=== PATIENT | male | born 1960 | race Caucasian/White ===

== ENCOUNTER 2016-07-18 12:22 | Day surgery (SDC) | payer MEDICAID ==
[2016-07-18] MEDS ORDERED: fentaNYL 100 MCG/2 ML INJ ONE (13:36)
[2016-07-18] MEDS ORDERED: MIDAZOLAM 2 MG/2 ML VIAL ONE ×2 (13:36)
[2016-07-18] MEDS ORDERED: TRIAMCINOLONE ACETONIDE 200 MG/5 ML MDV IM ONE (15:11)
[2016-07-18] MEDS ORDERED: LIDOCAINE 1% 30 ML SDV ONE (15:11)
== END 2016-07-18 15:45 | disposition home or self-care (01) ==
LOC: FIMAGING 12:22
PROC: 3E0S33Z Introduction of Anti-inflammatory into Epidural Space, Percutaneous Approach (ICD-10-PCS; principal; 2016-07-18 15:15)
PROC: 3E0S3BZ Introduction of Anesthetic Agent into Epidural Space, Percutaneous Approach (ICD-10-PCS; principal; 2016-07-18 15:15)
DX: M51.36 Other intervertebral disc degeneration, lumbar region (principal); M54.12 Radiculopathy, cervical region; M54.16 Radiculopathy, lumbar region
CPT/HCPCS: 0216T; 99152; J2250; J3010; J3301

== ENCOUNTER 2017-05-04 14:17 | Observation (INO) | payer MEDICAID ==
--- NOTE | 2017-05-04 14:29 | CPEKG ---
Heart Rate: 72 RR Interval: 833 P-R Interval: 176 QRSD Interval: 92 QT Interval: 388 QTC Interval: 425 P [place]: 77 QRS [place]: 75 T Wave [place]: -28 EKG Severity - ABNORMAL ECG - EKG Impression: SINUS RHYTHM EKG Impression: NONSPECIFIC T ABNORMALITIES, INFERIOR LEADS Electronically Signed By: Chacorta Vera 04-May-2017 15:12:50
[2017-05-04] MEDS ORDERED: NS 500 ML IV ONE (14:31)
[2017-05-04] MEDS ORDERED: ASPIRIN 81 MG CHEWABLE TAB PO ONE (14:31)
[2017-05-04 14:41] LABS: PLATELET COUNT 197 10^3/uL (150-400)
--- NOTE | 2017-05-04 14:51 | EDPHY ---
H & P Smoking Status: Never smoked Time Seen by Provider: 05/04/17 14:29 HPI/ROS: HPI Chest discomfort, lightheaded. 56-year-old male by private vehicle. This patient has a history of coronary artery disease with MN and stents placed x2 right coronary artery December 22 in [facility]. He presents the emergency department today with complaint of chest pressure and shortness of breath with she is worse with exertion intermittent since Monday but worse today. ROS: Constitutional: No fever, no chills. No weakness. Eyes: No discharge. No changes in vision. ENT: No sore throat. No nasal congestion or rhinorrhea. Respiratory: No cough. As above. Cardiac: As above, no palpitations. Gastrointestinal: No abdominal pain, no vomiting, no diarrhea. Genitourinary: No hematuria. No dysuria or increased frequency with urination. Musculoskeletal: No back pain. No neck pain. No myalgias or arthralgias. Skin: No rashes. Neurological: No headache. No focal weakness or altered sensation. Past medical history: As above, back surgery, gastritis. Social history: Nonsmoker. Here by himself. No alcohol. Physical Exam: General Appearance: Alert, no distress. This patient is responding to questions appropriately and in full sentences. This patient appears well- hydrated and well-nourished. Eyes: Pupils equal and round no pallor or injection. No lid edema, erythema or injection. Respiratory: There are no retractions, lungs are clear to auscultation with good air movement bilaterally. Cardiovascular: Regular rate and rhythm. No murmur. Gastrointestinal: Abdomen is soft and nontender, no masses, bowel sounds normal. No focal tenderness at McBurney's point. No Koehler sign. Neurological: Motor sensory function is grossly intact. Cranial nerves are normal. Gait is normal. Skin: Warm and dry, no rashes. Musculoskeletal: Neck is supple and nontender. Extremities are symmetrical. All joints range without pain or impingement. Psychiatric: No agitation. No depression. Database: EKG: EKG time is 2:27 p.m.; EKG shows a narrow complex normal sinus rhythm with a ventricular rate of 72. The IA, QRS, QT intervals are within normal limits. There are no ST-T wave changes indicative of ischemic or injury pattern. No evidence of right heart strain. Interpreted by me. Imaging: Chest x-ray AP portable; the cardiac mediastinal silhouette is unremarkable. No evidence of infiltrate or pneumothorax. No acute cardiopulmonary disease process noted. Interpreted by me. Procedures: Emergency department course: IV placed. He was placed on a monitor. Vital signs reviewed and are normal. He was given 324 mg of chewed aspirin. EKG obtained and reviewed by myself. 3:00 p.m.. We are still awaiting blood work results on this patient. Plan disposition is admission. Care turned over to Dr. Tk Guzmán at this time. Differential Diagnosis: The differential diagnosis on this patient includes but is not limited to acute coronary syndrome, pulmonary embolism, pneumonia. This represents a partial list of diagnoses considered. These considerations are based on history, physical exam, past history, reassessment and diagnostic testing. (Chacorta Vera) Constitutional: Initial Vital Signs Temperature (C) 36.7 C 05/04/17 14:20 Heart Rate 74 05/04/17 14:20 Respiratory Rate 18 05/04/17 14:20 Blood Pressure 111/79 05/04/17 14:20 O2 Sat (%) 97 05/04/17 14:20 O2 Delivery Mode Room Air Allergies/Adverse Reactions: gluten Allergy (Verified 05/04/17 14:19) GI lactose Allergy (Verified 05/04/17 14:19) GI ALMONDS Allergy (Uncoded 03/21/16 16:10) ORAL MOUTH/THROAT WINE Allergy (Uncoded 03/21/16 16:10) ORAL MOUTH THROAT BURNING Home Medications: Medication Instructions Recorded Aspirin EC [Aspirin EC 81 mg (*)] 81 mg PO DAILY 05/04/17 MIRTAZAPINE [Remeron 7.5 mg] 7.5 mg PO HS 05/04/17 Metoprolol Succinate Xr [Toprol Xl 25 mg PO DAILY 05/04/17 25 mg (*)] Ticagrelor [Brilinta] 60 mg PO 05/04/17 Medical Decision Making - Diagnostics Imaging Results: Imaging Impressions Chest X-Ray 05/04/17 14:31 Impression: Stable negative chest Chest/Thorax CTA 05/04/17 16:30 Impression: 1. Motion limited study, with no visible pulmonary embolus. 2. Prominent right hilar lymph node, possibly reactive. Short-term follow-up CT is recommended in 1-3 months. 3. Peribronchial thickening suggesting bronchitis/airways disease. 4. Additional findings, as above. Findings discussed with Tk Guzmán M.D., on May 04, [address] for PE is negative for PE One-view chest reviewed by me and appears normal (Tk Guzmán) ED Course/Re-evaluation: I have also seen and evaluated the patient. I obtained history of chest pain I reviewed his EKG. Labs showed an elevated D-dimer the. I recommended CT angiogram to the patient. He expresses agreement. I consulted and discussed the case with Dr. deep Maldonado, hospitalist who will see the patient in the emergency department I consulted and discussed case with Dr. Pedro, cardiology who sees the patient in the department also. (Tk Guzmán) Differential Diagnosis: Patient has known coronary artery disease and MN with stents about 5 months ago. I also considered pulmonary embolus and pneumonia. (Tk Guzmán) - Data Points Laboratory Results: Laboratory Results 05/04/17 14:35 05/04/17 14:35 05/04/17 05/04/17 05/04/17 14:35 14:35 14:35 WBC RBC Hgb Hct MCV MCH MCHC RDW Plt Count MPV Neut % (Auto) Lymph % (Auto) [place] % (Auto) Eos % (Auto) Baso % (Auto) Nucleat RBC Rel Count Absolute Neuts (auto) Absolute Lymphs (auto) Absolute Monos (auto) Absolute Eos (auto) Absolute Basos (auto) Absolute Nucleated RBC Immature Gran % Immature Gran # PT INR APTT D-Dimer Cancelled Sodium 137 mEq/L mEq/L (135-145) Potassium 4.1 mEq/L mEq/L (3.5-5.2) Chloride 102 mEq/L mEq/L (97-110) Carbon Dioxide 23 mEq/l mEq/l (22-31) Anion Gap 12 mEq/L mEq/L (8-16) BUN 17 mg/dL mg/dL (7-23) Creatinine 1.1 mg/dL mg/dL (0.7-1.3) Estimated GFR > 60 Glucose 114 mg/dL H mg/dL (70-100) Calcium 9.8 mg/dL mg/dL (8.5-10.4) Creatine Kinase 336 IU/L H IU/L (0-224) CK-MB (CK-2) Fraction 6.74 ng/mL H ng/mL (0.00-3.19) CK-MB (CK-2) % 2.0 % % (0.0-4.0) Creatine Kinase Interp NEGATIVE (NEGATIVE) Troponin I 0.015 ng/mL ng/mL (0.000-0.034) NT-Pro-B Natriuret Pep 114 pg/mL pg/mL (0-125) 05/04/17 05/04/17 14:35 14:35 WBC 8.53 10^3/uL 10^3/uL (3.80-9.50) RBC 4.73 10^6/uL 10^6/uL (4.40-6.38) Hgb 15.4 g/dL g/dL (13.7-17.5) Hct 41.1 % % (40.0-51.0) MCV 86.9 fL fL (81.5-99.8) MCH 32.6 pg pg (27.9-34.1) MCHC 37.5 g/dL H g/dL (32.4-36.7) RDW 12.7 % % (11.5-15.2) Plt Count 197 10^3/uL 10^3/uL (150-400) MPV 10.0 fL fL (8.7-11.7) Neut % (Auto) 72.7 % % (39.3-74.2) Lymph % (Auto) 18.2 % % (15.0-45.0) [place] % (Auto) 7.4 % % (4.5-13.0) Eos % (Auto) 0.7 % % (0.6-7.6) Baso % (Auto) 0.6 % % (0.3-1.7) Nucleat RBC Rel Count 0.0 % % (0.0-0.2) Absolute Neuts (auto) 6.21 10^3/uL 10^3/uL (1.70-6.50) Absolute Lymphs (auto) 1.55 10^3/uL 10^3/uL (1.00-3.00) Absolute Monos (auto) 0.63 10^3/uL 10^3/uL (0.30-0.80) Absolute Eos (auto) 0.06 10^3/uL 10^3/uL (0.03-0.40) Absolute Basos (auto) 0.05 10^3/uL 10^3/uL (0.02-0.10) Absolute Nucleated RBC 0.00 10^3/uL 10^3/uL (0-0.01) Immature Gran % 0.4 % % (0.0-1.1) Immature Gran # 0.03 10^3/uL 10^3/uL (0.00-0.10) PT 13.4 SEC SEC (12.0-15.0) INR 1.00 (0.83-1.16) APTT 25.1 SEC SEC (23.0-38.0) D-Dimer 0.55 ug/mLFEU H ug/mLFEU (0.00-0.50) Sodium Potassium Chloride Carbon Dioxide Anion Gap BUN Creatinine Estimated GFR Glucose Calcium Creatine Kinase CK-MB (CK-2) Fraction CK-MB (CK-2) % Creatine Kinase Interp Troponin I NT-Pro-B Natriuret Pep Medications Given: Discontinued Medications Aspirin (Aspirin) 324 mg PO EDNOW ONE Stop: 05/04/17 14:32 Last Admin: 05/04/17 14:59 Dose: 324 mg Sodium Chloride (Ns) 500 mls @ 1,000 mls/hr IV EDNOW ONE PRN Reason: Protocol Stop: 05/04/17 15:00 Last Admin: 05/04/17 15:01 Dose: 500 mls Sodium Chloride (Ns) 1,000 mls @ 0 mls/hr IV ONCE ONE; Wide Open PRN Reason: Protocol Stop: 05/04/17 16:31 Last Admin: 05/04/17 17:34 Dose: 1,000 mls Departure - Departure Disposition: [facility] Inpatient Acute Clinical Impression: Chest pain, History of coronary artery disease Condition: Good Referrals: Luana Roberto, PAC [Primary Care Provider] - As per Instructions
[2017-05-04 14:52] LABS: PROTIME(PATIENT) 13.4 SEC (12.0-15.0)
[2017-05-04 14:54] LABS: CREATINE KINASE 336 IU/L (0-224)
[2017-05-04] MEDS ORDERED: ASPIRIN 81 MG CHEWABLE TAB ONE (15:00)
[2017-05-04] MEDS ORDERED: ONDANSETRON 4 MG/2 ML VIAL IVP PRN (16:21)
[2017-05-04] MEDS ORDERED: ONDANSETRON DISINTEGRATING 4 MG TAB PO PRN (16:21)
[2017-05-04] MEDS ORDERED: ACETAMINOPHEN 325 MG TAB PO PRN (16:21)
[2017-05-04] MEDS ORDERED: NS 1,000 ML IV ONE (16:30)
[2017-05-04] MEDS ORDERED: IOPAMIDOL (ISOVUE 370) 100 ML BTL IV ONE (16:44)
--- NOTE | 2017-05-04 17:02 | GHP ---
[f rep st] HISTORY AND PHYSICAL DATE OF ADMISSION: 05/04/2017 CHIEF COMPLAINT: Chest pain. HISTORY OF PRESENT ILLNESS: A 56-year-old male with a history of coronary artery disease. [place] when he developed substernal chest pressure and dyspne a on exertion. He was taken to a hospital in [place], diagnosed with coronary artery disease and had 2 stents placed to his RCA. Patient returned to the [facility], underwent cardiac rehabilitation. He reports, since the stenting, he has not been his normal self but has not had chest discomfort or true exertional symptoms similar to his previous [facility]. On Monday of this week, approximately 48 hours ago, the patient developed new substernal chest pressure and marked dyspnea with minimal exertion wh ich is atypical for his baseline. He then developed some sensation of nausea, diaphoresis and, there fore, presented to the emergency department. In the ED, patient denies any active chest pain. Denie s shortness of breath. Diaphoresis is resolved. Patient denies any changes in his bowel habits. De nies subjective fevers or chills. Denies palpitations. Reports that he has a sensation of lower ext remity edema but objectively has not noticed any true swelling. Reports an overall diminishment in h is sense of wellness since his stenting. Patient reports that he has recently been taken off his Cre stor statin in hopes that some muscle aches and pains he had been having resolved. He believes that has improved. PAST MEDICAL HISTORY: Coronary artery disease status post stenting to the RCA x2, December of 2016. SOCIAL HISTORY: Negative for tobacco. Occasional social alcohol. No illicit drugs or marijuana. FAMILY HISTORY: Negative for coronary disease. His father has a history of arrhythmias. ADVANCED DIRECTIVES: Patient is full COR, full tube. REVIEW OF SYSTEMS: A 10-point review of systems is negative with the exception of that reported in t he HPI. PHYSICAL EXAMINATION: VITAL SIGNS: Blood pressure 107/65, heart rate 60, respiratory rate 20, 96% o n room air, 36.7. GENERAL: This is a healthy-appearing middle-aged male in no acute distress. HEENT : Notable for moist mucous membranes. Eye exam is negative for any icterus. CARDIAC: Patient is r egular rate and rhythm. PULMONARY: Clear to auscultation bilaterally. GASTROINTESTINAL: Positive bowel sounds. Abdomen soft and nontender in all 4 quadrants. MUSCULOSKELETAL: Negative for any low er extremity edema. SKIN: Negative for any rashes. NEUROLOGIC: Patient is alert and oriented x3. PSYCHIATRIC: He is pleasant and cooperative on interview and examination. White count 8.5, hematocrit 41.4, platelets of 197. Creatinine 1.1. Troponin 0.015. EKG, which I p ersonally reviewed and interpreted, shows sinus rhythm, normal axis, nonspecific ST flattening in the inferior leads. Chest x-ray, which I personally reviewed and interpreted, shows no acute infiltrate s or edema. ASSESSMENT AND PLAN: This is a 56-year-old male, with a history of coronary artery disease, presenti with chest pain. 1. Acute chest pain. With patient's recent history of RCA stenting and the quality of his symptoms related to his previous event, patient will be admitted for serial troponins and EKGs to rule out. S uspect the patient will likely undergo more invasive imaging with Cardiology tomorrow. In preparatio n for this, will make the patient n.p.o. I have asked that [facility] consult as he is a [facility] patient and has had recent imaging in their clinic which will be useful to review. 2. Coronary artery disease. Will continue the patient's beta nadeem, aspirin, Brilinta, and PAULIE in hibitor once his medications are fully reconciled. 3. Prophylaxis. Patient is ambulating. 4. Diet. Cardiac and n.p.o. after midnight. 5. Disposition. I expect in less than 2 midnights, if the patient rules out with normal troponins, EKGs, and stress testing. I discussed the case with Dr. Emil Pedro. He will consult for [facility] earjohanna and help with recommendations related to imaging in the morning. /[id number]/MODL
[2017-05-04] MEDS ORDERED: ZOLPIDEM TARTRATE 5 MG TAB PO PRN (22:12)
[2017-05-04] MEDS ORDERED: NITROGLYCERIN 0.4 MG BTL SL PRN ×2 (22:15→22:26)
[2017-05-04] MEDS ORDERED: NITROGLYCERIN 0.4 MG BTL SL ONE (22:23)
[2017-05-04] MEDS ORDERED: MIRTAZAPINE 15 MG TAB PO SCH (23:45)
[2017-05-04] MEDS ORDERED: METOPROLOL TARTRATE 25 MG TAB PO SCH (23:45)
[2017-05-05] MEDS: TICAGRELOR 90 MG TAB PO SCH ×2 (00:05→09:39)
[2017-05-05] MEDS: PREGABALIN 75 MG CAP PO SCH ×2 (00:05→09:39)
[2017-05-05] MEDS ORDERED: Herbals/Supplements -Info Only PO SCH (09:00)
[2017-05-05] MEDS ORDERED: CHOLECALCIFEROL VIT D3 2,000 UNITS TAB/CAP PO SCH (09:00)
[2017-05-05] MEDS ORDERED: ASPIRIN EC 81 MG TAB PO SCH (09:00)
[2017-05-05] MEDS ORDERED: LISINOPRIL 2.5 MG TAB PO SCH (09:00)
--- NOTE | 2017-05-05 09:45 | ASMTCASEMG ---
Living Arrangements What is your living Answers: Alone arrangement? Who do you live with? Type Of Residence What kind of residence do Answers: Apartment you live in? Discharge Plan Comments Coordination Status Comments Notes: Pt is a 56 y/o man admitted for chest pain. Pt will most likely d/c independent when medically stable. No therapies ordered at this time. CM available for changes. Plan: Independent Date Signed: 05/05/2017 09:45 AM Electronically Signed By:UBALDO Dowell
[2017-05-05] MEDS ORDERED: FAMOTIDINE 20 MG TAB PO ONE (10:04)
[2017-05-05] MEDS ORDERED: NS 1,000 ML IV ONE (10:04)
[2017-05-05] MEDS ORDERED: diphenhydrAMINE 25 MG CAP PO ONE (10:04)
[2017-05-05] MEDS ORDERED: DIAZEPAM 5 MG TAB PO ONE (10:04)
[2017-05-05] MEDS ORDERED: ASPIRIN EC 325 MG TAB PO ONE (10:04)
[2017-05-05] MEDS ORDERED: IOPAMIDOL (ISOVUE-370) 150 ML BTL IV ONE (10:06)
[2017-05-05] MEDS ORDERED: LIDOCAINE 1% 300 MG/30 ML SDV ONE ×2 (10:06→11:26)
[2017-05-05] MEDS ORDERED: MIDAZOLAM 2 MG/2 ML VIAL ONE (10:10)
[2017-05-05] MEDS ORDERED: fentaNYL 100 MCG/2 ML INJ ONE (10:10)
--- NOTE | 2017-05-05 11:39 | PDHPUP ---
History & Physical Update H&P update statement: This history and physical update is based on an assessment of the patient which was completed after admission or registration (within 24 hours), but prior to the surgery/procedure. H&P update: H&P reviewed & patient examined, no change in patient's condition since H&P completed
[2017-05-05] MEDS ORDERED: FAMOTIDINE 20 MG/NACL/50 ML BAG IV ONE (11:40)
--- NOTE | 2017-05-05 11:40 | PDPROPOC ---
Sedation Plan of Care Sedation Plan of Care: mental status noted, patient educated of risks, benefits , alternatives, patient can tolerate sedation ASA Classification: ASA 2 Planned drugs: fentanyl, midazolam Mallampati Score: Class 2 Mallampati Reference Image: Patient passed 3-3-2 rule?: Yes
--- NOTE | 2017-05-05 11:54 | HOSPPROG ---
Hospitalist Progress Note Assessment/Plan: #CP #Hx of CAD #Hx of RCA stenting Plan: -trops negative x 3 -Await decision regarding possible cath -cont BB, Aspirin, Brilinta, PAULIE-I -Cards to see Subjective: afebrile. No further chest pain. Unclear if he is agreeable to a cath. Cards to see. Objective: Vital Signs Temp Pulse Resp BP Pulse Ox 36.7 C 66 14 115/80 97 05/05/17 11:02 05/05/17 11:02 05/05/17 11:02 05/05/17 11:02 05/05/17 11:02 05/04/17 05/05/17 05/06/17 05:59 05:59 05:59 Intake Total 100 300 Balance 100 300 PT 13.4 SEC (12.0-15.0) 05/04/17 14:35 INR 1.00 (0.83-1.16) 05/04/17 14:35 - Physical Exam Constitutional: no apparent distress Eyes: PERRL Ears, Nose, Mouth, Throat: moist mucous membranes Cardiovascular: regular rate and rhythym, No edema Respiratory: no respiratory distress, no rales or rhonchi, clear to auscultation Gastrointestinal: normoactive bowel sounds Skin: warm Musculoskeletal: full muscle strength Neurologic: AAOx3 Psychiatric: interacting appropriately, not anxious, not encephalopathic, thought process linear Lymph, Heme, Immunologic: No petechiae ICD10 Worksheet Patient Problems: Problems Problem Status Onset Chest pain Acute History of coronary artery disease Acute Lumbosacral stenosis Active
--- NOTE | 2017-05-05 14:11 | PDDCSUM ---
Discharge Summary Discharge Summary: 56 yo male with hx of CAD s/p RCA stenting admitted for acute chest pain. Had negative cardiac r/o to include negative troponins and negative cardiac cath. No medications were changed. cont BB, Aspirin, Brilinta, PAULIE-I He is no longer symptomatic has been cleared for d/c by cards will f/u with PCP in one week DDX: #CP #Hx of CAD #Hx of RCA stenting Exam: See progress note from this morning meds: see med rec total care time spent on discharge including coordination with Cardiology, nursing, and case mgmt is 40 minutes.
[2017-05-05 14:16] VITALS: RESP 12; TEMP 97.5; O2SAT 93
[2017-05-05 15:48] VITALS: BP 93/56; PULSE 52
--- NOTE | 2017-05-05 17:51 | ASDISCHSUM ---
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 Who do you live with? Type Of Residence What kind of residence do Answers: Apartment you live in? Discharge Plan Comments Coordination Status Comments Notes: Pt is a 56 y/o man admitted for chest pain. Pt will most likely d/c independent when medically stable. No therapies ordered at this time. CM available for changes. Plan: Independent Date Signed: 05/05/2017 09:45 AM Electronically Signed By:UBALDO Dowell Intervention Information Intervention Type:*Incorrect Registration Date of Service:05/05/2017 12:42 PM Patient Type:Inpatient Staff Member:TOSHA Morton Susan Hours: Discipline: Severity: Comment:
--- NOTE | 2017-05-05 20:58 | CPIP ---
[f rep st] INVASIVE CARDIAC PROCEDURE DATE OF PROCEDURE: 05/05/2017 INDICATION FOR PROCEDURE: Chest pain. PROCEDURE: 1. Nonselective right groin sheathogram. 2. Bilateral selective coronary angiography. 3. Left heart catheterization. 4. Left angiogram. HISTORY: This is a 56-year-old male with history of recent STEMI/RCA PCI 3 months ago. The patient was admitted overnight for chest pain which was according to the patient similar to his pain before h is heart attack. The patient's troponins were negative and his ECG showed no new acute ST changes. However, given the patient's presentation, we decided to proceed with diagnostic cardiac catheterizat ion. DESCRIPTION OF PROCEDURE: After informed consent, the patient was brought to [facility] where the right groin was prepped and draped in a sterile fashion. Using lidocaine, a short 6-Fren ch sheath was placed in the right femoral artery. Through this 6-Yi sheath, a JL4 catheter was a dvanced to the left coronary artery. Images of the left coronary artery revealed normal short left m ain. There was a ramus intermedius which was tiny. The left circumflex artery had what appeared to be a 30%-40% tubular area of disease in its midbody, terminating to 3 marginal arteries which were al l healthy and free of disease. The LAD was a long vessel which wrapped around the apex. The LAD gav e off a medium-sized diagonal artery in the midbody which was healthy and free of disease. The LAD i tself had no significant disease, had only mild plaque disease noted in its mid-distal aspect. As th e images were obtained, the JL4 catheter was removed. The JR4 catheter was advanced to the right cor onary artery. Images of the right coronary artery revealed normal os, mid RCA, 10% to 20% plaque dis ease in the proximal RCA. There was a stent in the mid-RCA which appearance to be widely patent with no evidence of in-stent restenosis. The distal RPD and RPLS appeared to be widely patent. After th e images were taken, the JR4 catheter was removed. A pigtail catheter was advanced to the left ventr icle. EDP was 18 mmHg. The left ventriculogram in the CRAFT projection showed an EF of 55% with no wa ll motion abnormalities and no pull-back gradient between the LV and the aorta. The pigtail catheter was then removed over the 0.035 wire. The right groin was closed with manual pressure. The patient tolerated the procedure well without complications. IMPRESSION: 1. Widely patent stents to the right coronary artery. 2. 30%-40% tubular lesion in the midleft circumflex artery which was nonflow-limiting. 3. Essentially normal left anterior descending. 4. Normal ejection fraction. PLAN: At this time will continue with aggressive medical therapy. The patient will be discharged [facility] this evening. Further orders following clinical course. /[id number]/MODL
== END 2017-05-05 17:39 | disposition home or self-care (01) ==
LOC: INTOOBSV 18:18 → F2W 19:40
PROVIDERS: ADMIT Hospitalist; ATTEND Family Medicine
PROC: B2111ZZ Fluoroscopy of Multiple Coronary Arteries using Low Osmolar Contrast (ICD-10-PCS; principal; 2017-05-04)
PROC: B2151ZZ Fluoroscopy of Left Heart using Low Osmolar Contrast (ICD-10-PCS; principal; 2017-05-04)
PROC: 4A023N7 Measurement of Cardiac Sampling and Pressure, Left Heart, Percutaneous Approach (ICD-10-PCS; principal; 2017-05-04)
DX: R07.89 Other chest pain (principal); I25.10 Atherosclerotic heart disease of native coronary artery without angina pectoris; Z95.5 Presence of coronary angioplasty implant and graft; I25.2 Old myocardial infarction
CPT/HCPCS: 71045; 71275; 93005; 93458; G0378; J1200; J1644; J2250; J3010; Q9967

== ENCOUNTER → 2017-08-03 | Outpatient (CLI) | payer MEDICAID | LOC: FIMAGING 09:02 | PROVIDERS: ATTEND Internal Medicine Cardiovascular Disease | DX: I88.9 Nonspecific lymphadenitis, unspecified (principal); I25.10 Atherosclerotic heart disease of native coronary artery without angina pectoris ==